=== PATIENT | male | born 1965 | race Caucasian/White ===

== ENCOUNTER 2025-03-01 13:20 | Outpatient (CLI) | payer MEDICARE, MEDICAID, SELFPAY ==
--- NOTE | 2025-03-01 | CA_ITS ---
FINAL REPORT TECHNIQUE: Multiple transverse and longitudinal scans were performed of the femoropopliteal deep venous system, with augmentation and compression maneuvers. CLINICAL HISTORY: LEFT LEG PAIN OLD INJURY WITH SWELLING REDNESS OF CALF FINDINGS: DUPLEX VENOUS SONOGRAPHY OF THE LEFT LOWER EXTREMITY Normal phasic flow was noted in the visualized deep venous system. No intraluminal increased echogenicity is noted to suggest thrombus. There is normal compression and augmentation of the venous structures. No abnormal venous collaterals are seen. IMPRESSION: No evidence of deep venous thrombosis of the left lower extremity. Reviewed, Interpreted and Dictated by Dayna Dupree MD Transcribed by Kimberlee Luis Authenticated and [facility]
== END 2025-03-01 23:59 | disposition home or self-care (01) ==
LOC: RT 13:22
PROVIDERS: PCP Nurse Practitioner Family; Visit Provider Nurse Practitioner Family
DX: M79.605 Pain in left leg (principal); I73.9 Peripheral vascular disease, unspecified; T14.90XS Injury, unspecified, sequela
CPT/HCPCS: 93971

== ENCOUNTER 2025-08-23 13:44 | Emergency (ER) | payer MEDICARE, MEDICAID, SELFPAY ==
[2025-08-23] VITALS (8 sets, daily range): BP systolic 118–145; BP diastolic 64–91; PULSE 64–97; RESP 18; TEMP 36.8–36.9; O2SAT 94–98; BMI 36.9
--- NOTE | 2025-08-23 13:46 | ED_ITS ---
Discharge Plan Disposition Patient Disposition: Home, Self-Care Condition: Good Prescriptions Prescriptions: New prednisone 20 mg tablet 40 mg PO BID 5 Days Qty: 20 0RF azithromycin 250 mg tablet 250 mg PO DAILY 4 Days Qty: 4 0RF Rx Instructions: start on day 2 of therapy Referrals Follow up/Referrals: Shoaib Infante PA [Physician Optometric Aide, Cardiology] - See instructions Adalberto Calderon MD [Physician, Pulmonology] - See instructions Antoinette Simpson APRN [Primary Care Provider, Medical] - See instructions Activity Restrictions/Add. Instructions Additional Instructions/Restrictions: Use your albuterol inhaler 4 puffs every 4 hours scheduled for the next 2 days, then 2 puffs as needed. Follow-up with pulmonology and cardiology. You must call them to make an appointment. Continue with your water pills. Return to the emergency department if you develop worsening shortness of breath, fevers, chest pain, or become concerned for your health. Clinical Impressions Clinical Impression: Acute exacerbation of chronic obstructive airways disease, Congestive heart failure Print Language Print Language: Hungarian Discharge ED Provider: Pablito King Adult HPI General Chief complaint: Shortness of Breath/Dyspnea Stated complaint: SOA Time Seen by Provider: 08/23/25 13:46 History of Present Illness HPI narrative: Patient is a 60-year-old male with history of hypertension hyperlipidemia COPD, noncompliant with medication regimen, CHF, noncompliant with medication regimen. He presents today due to worsening shortness of breath as well as a worsening productive cough over the last several days. He reports that shortness of breath has been worsening significantly over the last several weeks. I did speak with his [facility] PCP over the phone and she reports that he has been noncompliant with his medicines. Reports that he was hypoxic in the office today so was sent here for further evaluation. He denies any fevers denies any chest pain denies any abdominal pain vomiting diarrhea. Denies any sick contacts. Reports he is urinating and stooling appropriately. He does report significant bilateral lower extremity edema that has been worsening despite his fluid pills at home. Related Data Previous Rx's ?Medication ?Instructions ?Recorded azithromycin 250 mg tablet 250 mg PO DAILY 4 days #4 t abs 08/23/25 prednisone 20 mg tablet 40 mg (2 x 20 mg) PO BID 5 d ays 08/23/25 #20 tabs Allergies Allergy/AdvReac Type Severity Reaction Status Date / Time No Known Allergies Allergy Verified 08/23/25 14:54 [facility] Disclaimer: The information contained in this section may have been updated after the patient was seen, as this information can be updated by other users. Social History Smoking Status: Heavy tobacco smoker alcohol intake: never current occupational status: employed Travel in the last 8 weeks?: None ROS Obtained: Yes All systems reviewed & no additional complaints except as documented Physical Exam General General appearance: alert, in no apparent distress and obese Head Head exam: atraumatic and normocephalic Eye Eye exam: Present PERRL and EOMI ENT ENT exam: Present normal oropharynx Neck Neck exam: Present full ROM and trachea midline Chest Chest inspection: Present symmetric chest wall rise Respiratory Respiratory exam: Present respiratory distress, wheezes and accessory muscle use Cardiovascular Cardiovascular exam: Present regular rate and normal rhythm Abdominal Exam Abdominal exam: Present soft; Absent distention or tenderness Extremities Exam Extremities exam: Present full ROM Neurological Exam Neurological exam: Present alert and oriented X3 Psychiatric Psychiatric exam: Present normal mood Skin Skin exam: Present warm and dry Medical Decision Making Medical Records Screening: Per USPSTF and CDC recommendations, given the prevalence of disease in our region, it is our hospital?s policy to screen for HIV and viral Hepatitis for all patients aged 18 and over and those with ongoing risk factors. Chan Inquiry Pt receiving controlled substance: No Vital Signs: 08/23/25 13:50 08/23/25 14:00 08/23/25 14:02 Temperature 98.3 F Temperature Source Oral Pulse Rate 97 H 85 Pulse Rate [Right] 97 H Respiratory Rate 18 Blood Pressure 145/79 H 134/64 Blood Pressure [Right Arm] 145/79 H Blood Pressure Mean [Right Arm] 101 Blood Pressure Source [Right Arm] Automatic Cuff Blood Pressure Position [Right Arm] Sitting 02 Sat by Pulse Oximetry 95 95 94 L Oxygen Delivery Method Room Air Oxygen Flow Rate (LPM) 08/23/25 14:30 08/23/25 15:00 08/23/25 15:20 Temperature Temperature Source Pulse Rate 88 95 H 97 H Pulse Rate [Right] Respiratory Rate Blood Pressure 128/78 121/74 Blood Pressure [Right Arm] Blood Pressure Mean [Right Arm] Blood Pressure Source [Right Arm] Blood Pressure Position [Right Arm] 02 Sat by Pulse Oximetry 98 95 98 Oxygen Delivery Method T-Piece Nasal Cannula Nasal Cannula Oxygen Flow Rate (LPM) 6 2 2 Lab Data Lab Results 08/23/25 13:55: WBC 8.3, RBC 5.06, Hgb 15.4, Hct 47.4, MCV 93.7, MCH 30.4, MCHC 32.5, RDW 14.1, Plt Count 214, MPV 9.6, Neut % (Auto) 71.9, Lymph % (Auto) 16.3, [place] % (Auto) 7.4, Eos % (Auto) 3.6, Baso % (Auto) 0.2, Neut # (Auto) 5.9, Lymph # (Auto) 1.4, [place] # (Auto) 0.6, Eos # (Auto) 0.3, Baso # (Auto) 0.0, PT 10.3, INR 0.92, VBG pH 7.32, VBG pCO2 72.7 H, VBG pO2 31.5, VBG HCO3 36.5 H, VBG Total CO2 38.8 H, VBG O2 Saturation 68.2, VBG Base Excess 10.4 H, VBG Lactic Acid 2.0, Sodium 137, Potassium 4.5, Chloride 94 L, Carbon Dioxide 38 H, Anion Gap 9.5, BUN 18, Creatinine 0.60 L, Estimated Creat Clear 210, Estimated GFR 137, Est GFR ( Amer) 166, Glucose 114 H, Lactate 1.6, Calcium 9.3, Magnesium 2.1, Total Bilirubin 0.5, AST 31, ALT 23, Alkaline Phosphatase 77, Troponin I < 0.01, NT-Pro-B Natriuret Pep 135 H, Total Protein 8.9 H, Albumin 4.6, Globulin 4.3 H, Albumin/Globulin Ratio 1.1, Procalcitonin 0.061, SARS-CoV-2 (PCR) Not detected, Influenza A Untype (PCR) Not detected, Influenza Type B (PCR) Not detected 08/23/25 15:18: Urine Color Yellow, Urine Appearance Clear, Urine pH 7.0, Ur Specific Melvin 1.020, Urine Protein Negative, Urine Glucose (UA) Negative, Urine Ketones Negative, Urine Blood Negative, Urine Nitrate Negative, Urine Bilirubin Negative, Urine Urobilinogen 0.2, Ur Leukocyte Esterase Negative 08/23/25 13:55 08/23/25 13:55 Orders (Tests/Meds): ED MEDICATIONS Discontinued Medications Generic Name Dose Route Start Last Admin Trade Name Nicole PRN Reason Stop Dose Admin Albuterol/Ipratropium 9 ml 08/23/25 13:57 08/23/25 14:20 Ipratropium/Albuterol 3 Ml Neb IH 08/23/25 13:58 9 ml ONCE ONE Administration Furosemide 40 mg 08/23/25 14:33 08/23/25 14:55 Furosemide 40mg/4ml Vial IV 08/23/25 14:34 40 mg ONCE ONE Administration Magnesium Sulfate 2 gm in 50 mls @ 50 mls/hr 08/23/25 13:57 08/23/25 15:20 Magnesium Sulfate 2gm/50ml Premix IV 08/23/25 14:56 Infused ONCE ONE Infusion Azithromycin 500 mg/ Sodium 250 mls @ 250 mls/hr 08/23/25 14:01 08/23/25 15:20 Chloride IV 08/23/25 14:02 Infused ONCE ONE Infusion Methylprednisolone Sodium Succinate 125 mg 08/23/25 13:57 08/23/25 14:20 Methylprednisolone Sod Succ 125mg Vial IV 08/23/25 13:58 125 mg ONCE ONE Administration ORDERS Category Date Time Status XR chest portable Stat Exams 08/23/25 14:04 Completed BNP [NT Pro Brain Natriuretic Pep.] Stat Lab 08/23/25 13:55 Completed CBC w/Auto Diff [Complete Blood Count Auto Diff] Stat Lab 08/23/25 13:55 Completed CMP [Comprehensive Metabolic Panel] Stat Lab 08/23/25 13:55 Completed Lactic Acid Stat Lab 08/23/25 13:55 Completed MAG [Magnesium] Stat Lab 08/23/25 13:55 Completed PT INR [Prothrombin Time INR] Stat Lab 08/23/25 13:55 Completed Procalcitonin Stat Lab 08/23/25 13:55 Completed Rapid PCR Covid and Flu A/B Stat Lab 08/23/25 13:55 Completed Trop I [Troponin I] Stat Lab 08/23/25 13:55 Completed Troponin I Q3H Lab 08/23/25 17:15 Ordered Troponin I Q3H Lab 08/23/25 20:15 Ordered UA [Urinalysis and Microscopic] Stat Lab 08/23/25 15:18 Results Blood Culture Stat Micro 08/23/25 14:50 Received Urine Culture Stat Micro 08/23/25 15:18 Received VBG [Venous Blood Gas] Stat RT 08/23/25 13:55 Completed ECG Data Tracing #1: I reviewed this ECG and interpreted as documented below: Normal sinus rhythm with no obvious acute ischemic ST changes. Low voltage in the anterior precordium, not acutely actionable. Incomplete right bundle branch block. Medical Decision Narrative: Patient is a 6-year-old male noncompliant COPD and CHF. Presents today for shortness of breath. Sounds indolent, but has been worsening over the last 4 days and productive cough. No fevers. He was hypoxic on arrival into the low 80s requiring 4 L nasal cannula oxygen. He wears 2 L nasal cannula occasionally at home. He reports worsening productive cough. He has been overly compliant with his Breztri at home and has not had any relief. Heart is regular rate and rhythm, lung sounds are distant. He is not moving good air in the bases. He has diffuse wheezing expiratory. He is tachypneic with some subcostal retractions. He also has lower extremity edema. Likely COPD and CHF mixed picture, will treat for COPD exacerbation initially. With holding any fluid resuscitation right now. We will see what his chest x-ray looks like and likely diuresis if his electrolytes are within normal limits. Monitoring on telemetry. Chest x-ray to rule out pneumonia or further elucidate for heart failure. Chest x-ray independently interpreted by myself demonstrate a left-sided pleural effusion that is mild. I have given a dose of IV diuretics here with 40 of Lasix IV and he is diuresed appropriately. After his breathing treatments steroids and mag as well, he is now ambulatory about the emergency department and reports that he feels significantly better. Troponin negative, low suspicion for ACS. EKG nonischemic. Heart score 3. Low suspicion for PE given patient's chest x-ray most consistent with effusion, CHF, COPD exacerbation. His ambulatory O2 sats on his home 2 L nasal cannula is 98%. He has good supply of O2 at home. I have offered admission for observation, but he politely declines that he can manage at home and I agree with this. We will send him with a prednisone burst azithromycin, albuterol inhaler. Sent in follow-up with cardiology and pulmonology as well given his poorly controlled COPD and CHF. All questions answered, strict return precautions discussed, amenable to plan and discharge Critical Care Critical Care Time Critical Care Time: Yes Attestation: On 08/23/25, the high probability of a clinically significant, sudden or life threatening deterioration of the following system(s) required my full and direct attention, intervention and personal management. The time I documented below is in addition to time spent performing reported procedures but includes the following listed in this critical care notation. Total Time Total Critical Care Time: 33
--- NOTE | 2025-08-23 14:04 | XR_ITS ---
FINAL REPORT CLINICAL HISTORY: Shortness of breath COMPARISON: None FINDINGS: The heart size is normal. The mediastinum is normal. The lungs are underinflated. Opacity in the left lung base is noted. There is pleural and parenchymal scarring. There are no pleural effusions. There is no pneumothorax. There is no osseous abnormality. IMPRESSION: Left basilar opacity. Pleural and parenchymal scarring. Reviewed, Interpreted and Dictated by Shun Moreira MD Transcribed by Jazmine Mejia Authenticated and [facility]
--- NOTE | 2025-08-23 14:06 | ECG_ITS ---
APPROVED REPORT Exam: Resting ECG HR:85 bpm ECG Measurements Heart Rate 85 AXES MN 167 P 63 QRSd 95 QRS -88 QT 360 T 61 QTc 402 Conclusion SINUS RHYTHM INCOMPLETE RIGHT BUNDLE BRANCH BLOCK [90+ ms QRS DURATION, TERMINAL R IN V1/V2, 40+ ms S IN I/aVL/V4/V5/V6] LEFT ANTERIOR FASCICULAR BLOCK [QRS AXIS <= -45, QR IN I, RS IN II] ANTEROSEPTAL MYOCARDIAL INFARCTION , OF INDETERMINATE AGE [40+ ms Q WAVE IN V1-V4] ABNORMAL ECG UNCONFIRMED REPORT Electronically signed by : Pablito King, 08/23/2025 15:59:41
[2025-08-23 14:08] LABS: Coronavirus 19, PCR Not Detected (NotDetected); Influenza A, PCR Not Detected (NotDetected); Influenza B, PCR Not Detected (NotDetected)
[2025-08-23 14:09] LABS: Hematocrit 47.4 % (42.0-52.0); Hemoglobin 15.4 g/dL (14.1-18.0); Immature Granulocytes % 0.6 %; Mean Corpuscular HGB Conc 32.5 g/dL (31.8-35.4); Mean Corpuscular Hemoglobin 30.4 pg (27.0-31.2); Mean Corpuscular Volume 93.7 fl (80-94); Nucleated Red Blood Cells % 0 %; Platelet Count 214 K/mm3 (142-424); Red Blood Count 5.06 M/mm3 (4.60-6.20); Red Cell Distribution Width-SD 48.8 fL; White Blood Count 8.3 K/mm3 (4.8-10.8)
[2025-08-23 14:10] LABS: Lactate Venous 2.0 mmol/L (0.4-2.0); VBG HCO3 36.5 mmol/L (23-30); VBG PCO2 72.7 mmol/L (35-51); VBG PH 7.32 mmol/L (7.31-7.41); VBG PO2 31.5 mmol/L (28-40)
[2025-08-23 14:16] LABS: INR 0.92 (0.9-1.1); Prothrombin Time 10.3 seconds (10.1-12.5)
[2025-08-23] MEDS: METHYLPREDNISOLONE SOD SUCC 125MG VIAL 125 MG IV (14:20)
[2025-08-23] MEDS: IPRATROPIUM/ALBUTEROL 3 ML NEB 9 ML IH (14:20)
[2025-08-23] MEDS: AZITHROMYCIN 500 MG in 0.9 % SODIUM CHLORIDE 250 ML 250 MG IV (14:20)
[2025-08-23] MEDS: MAGNESIUM SULFATE IN WATER 2 GM/50 ML PIGGYBACK IV (14:21)
[2025-08-23 14:26] LABS: Alanine Aminotransferase 23 U/L (12-78); Albumin Level 4.6 g/dl (3.5-5.0); Albumin/Globulin Ratio 1.1 (1.1-1.8); Alkaline Phosphatase 77 U/L (38-126); Anion Gap 9.5 mEq/L (5-15); Aspartate Amino Transferase 31 U/L (17-59); Bilirubin,Total 0.5 mg/dl (0.2-1.3); Blood Urea Nitrogen 18 mg/dl (9-20); Calcium 9.3 mg/dl (8.4-10.2); Carbon Dioxide 38 mmol/L (22.0-30.0); Chloride 94 mmol/L (98-107); Creatinine Clearance Estimated 210 mL/min (50-200); Creatinine,Serum 0.60 mg/dl (0.66-1.25); Estimated Glomerular Filt Rate 137 ml/min (>60); GFR (African American) 166 ML/MIN (>60); Globulin 4.3 g/dL (1.3-3.2); Glucose 114 mg/dl (74-100); Magnesium 2.1 mg/dl (1.6-2.3); Potassium 4.5 mmoL/L (3.5-5.1); Sodium 137 mmol/L (136-145); Total Protein,Serum 8.9 g/dl (6.3-8.2)
[2025-08-23 14:38] LABS: NT Pro Brain Natriuretic Pep. 135 pg/mL (0-125); Troponin I < 0.01 ng/ml (0.00-0.034)
[2025-08-23 14:43] LABS: Procalcitonin 0.061 ng/mL (0.0-2.0)
[2025-08-23] MEDS: FUROSEMIDE 40MG/4ML VIAL 40 MG IV (14:55)
[2025-08-23 15:22] LABS: Microscopic, Urine URINE MICROSCOPIC (MICROSCOPIC)
[2025-08-23 15:28] LABS: Bilirubin,Urine Negative (Negative); Color,Urine YELLOW (Yellow); Glucose,Urine (UA) Negative (Negative); Ketones,Urine Negative (Negative); Leukocyte Esterase,Urine Negative (Negative); PH,Urine 7.0 (5.0-8.5); Protein,Urine Negative (Negative); Specific Gravity, Urine 1.020 (1.005-1.030); Urobilinogen,Urine 0.2 EU/dl (0.2)
[2025-08-23 15:36] LABS: Squamous Epithelial Cell,Urine Occasional #/hpf (0-5)
[2025-08-23] MEDS: ALBUTEROL-HFA 90MCG/PUFF INHALER 8GM 2 PUFF IH (15:40)
[2025-08-23] MEDS: AEROCHAMBER/OPTIHALER 1 UNIT MC (15:40)
== END 2025-08-23 16:01 | disposition home or self-care (01) ==
PROVIDERS: Emergency Provider Emergency Medicine; PCP Nurse Practitioner Family
DX: J44.1 Chronic obstructive pulmonary disease with (acute) exacerbation (principal); J90 Pleural effusion, not elsewhere classified; I11.0 Hypertensive heart disease with heart failure; I50.9 Heart failure, unspecified; E78.5 Hyperlipidemia, unspecified; F17.210 Nicotine dependence, cigarettes, uncomplicated
CPT/HCPCS: 71045; 80053; 81001; 82803; 83605; 83735; 83880; 84145; 84484; 85025; 85610; 87040; 87086; 87636; 93005; 96365; 96375; 99285; J0456; J1938; J2919; J3475; J7050